=== PATIENT | male | born 1965 | race Caucasian/White ===

== ENCOUNTER 2020-08-30 07:09 | Day surgery (SDC) | payer OTHER ==
[~2020-08-30] VITALS: Ht 167.6 cm; Wt 114.1 kg
[~2020-08-30 07:09] MED LIST: B COMPLEX1 EACH PO; CRUTCH1 EACH; GLUCOPHAGE500 MG PO; LIPITOR20 MG PO; LISINOPRIL-HCT1 EACH PO; NORCO 10-325 T1 EACH PO; NORCO 5-325 TA1 EACH PO; TYLENOL EXTRA500 MG PO
--- NOTE | 2020-08-30 09:38 | NUR ---
08/30/20 0938 Kristel Fritz 0952 PATIENT ARRIVES TO PACU AWAKE BUT DROWSY. ANSWERS QUESTIONS APPROPRIATELY. DENIES PAIN OR NAUSEA. RESP EVEN AND UNLABORED, NC AT 2 LITERS.
--- NOTE | 2020-08-30 12:14 | OR ---
[facility] [address], [place] [address] Signed DATE OF OPERATION: 08/30/2020 SURGEON: Mars Torres MD PREOPERATIVE DIAGNOSES: 1. Intermittent constipation and diarrhea. 2. Intermittent rectal bleeding associated with bowel movements. POSTOPERATIVE DIAGNOSES: 1. Minimal right and left-sided diverticulosis. 2. Posterior midline anal fissure. 3. 5 mm polyp mid right colon. 4. 4 mm polyp at 25 cm. 5. Minimal to moderate internal hemorrhoids. PROCEDURE: Colonoscopy with hot biopsy. ESTIMATED BLOOD LOSS: None. INDICATIONS: Maximiliano is a 55-year-old gentleman, asked to see me for a colonoscopy. He had a colonoscopy in 2014 back in [place]. He said that was negative. Initially, we thought might be a hemorrhoid, but as I talked to more day, it sounds like he had an anal fissure and possibly some hemorrhoids as well. He told me that he does have some intermittent constipation and diarrhea and then, he will have some associated rectal bleeding with the bowel movement. He thinks there are times when he has pain around the anus. He told me there is no family history of colon cancer or polyps. In the office, I gave him a pamphlet on colonoscopy and we looked at that together along with the risks including, but not limited to gas bloating, crampy abdominal pain, bleeding, perforation requiring surgery, and missed diagnosis. We also discussed the need for IV conscious sedation. He had expressed understanding and wished to proceed. PROCEDURE NOTE: Maximiliano was taken into our endoscopy suite and placed in the left lateral decubitus position. He received a total of 5 mg of Versed 100 mcg of fentanyl to cover the case. A digital rectal exam was performed and he does have some small external hemorrhoids and an acute posterior midline anal fissure. It should heal in just fine with conservative measures. He has good sphincter tone. Prostate is moderately indurated. The left is a Electronically Signed By: MARS TORRES MD 08/30/20 1214 PATIENT NAME: MAXIMILIANO QUINTANA OPERATIVE REPORT DATE OF : 61 REPORT #: [id number] PHYSICIAN: MARS TORRES MD PCP: NIELS BILL MD REPORT IS CONFIDENTIAL AND NOT TO BE RELEASED WITHOUT AUTHORIZATION [facility] [address], [place] [address] Signed little more prominent than the right. The adult colonoscope was introduced and advanced all around into the cecum under direct visualization of the camera without difficulty. His prep was good. We could easily see the appendiceal orifice and ileocecal valve. Right next to the ileocecal valve was a diverticulum. The scope was slowly withdrawn and we found a polyp in the mid right colon, easily removed with a hot biopsy forceps. There was a similar polyp back at 25 cm also removed with a hot biopsy forceps. He also has some diverticula in the sigmoid colon. Again, there is moderate in size, few in number, and scattered about. Down in the rectum, the scope was retroflexed, he does have some minimal internal hemorrhoid tissue. After this, the gas was suctioned out and colonoscope removed. Maximiliano tolerated the procedure quite well. RECOMMENDATIONS: I will see Maximiliano back in my office in 7 to 14 days to review his results. Mars Torres MD ALB/MODL /[id number] cc: Niels Torres MD Copies: MARS TORRES MD ~ Electronically Signed By: MARS TORRES MD 08/30/20 1214 PATIENT NAME: MAXIMILIANO QUINTANA OPERATIVE REPORT DATE OF : 61 REPORT #: [id number] PHYSICIAN: MARS TORRES MD PCP: NIELS BILL MD REPORT IS CONFIDENTIAL AND NOT TO BE RELEASED WITHOUT AUTHORIZATION
--- NOTE | 2020-08-31 13:45 | PATH ---
[facility] [address], [place] [address] Signed SPECIMEN(S): A RIGHT COLON POLYP SPECIMEN(S): B SIGMOID POLYP AT 25 CM SPECIMEN SOURCE: A. RIGHT COLON POLYP B. SIGMOID POLYP AT 25 CM CLINICAL HISTORY: Intermittent rectal bleeding, constipation, diarrhea, colon polyps, diverticulosis, anal fissure, internal hemorrhoids. MICROSCOPIC DESCRIPTION: Histologic sections of all submitted blocks are examined by light microscopy. These findings, together with the gross examination, support the pathologic diagnosis. FINAL PATHOLOGIC DIAGNOSIS: A. Right colon polyp: - Tubular adenoma (one fragment). B. Sigmoid polyp at 25 cm: - Tubular adenoma (one fragment). - Hyperplastic polyp (one fragment). JVR:[facility]:C2NR GROSS DESCRIPTION: Two specimens are received in two containers, labeled "DK." A. The specimen, labeled "DK, 1," and designated on the requisition "right colon polyp," is received in formalin and consists of one dudley soft tissue fragment that measures 0.3 cm in greatest dimension. The specimen is entirely submitted in cassette (A1). B. The specimen, labeled "DK, 2," and designated on the requisition "sigmoid colon polyp at 25 cm," is received in formalin and consists of two dudley soft tissue fragments that measure 0.3 cm in greatest dimension. The specimen is entirely submitted in cassette (B1). Note: minute friable fragment AT (under the direct supervision of a pathologist) The Gross Description was prepared using a voice recognition system. The report was reviewed for accuracy; however, sound-alike word errors, addition and/or deletions may occur. If there is any question about this report, please contact Client Services. PERFORMING LABORATORY: PATIENT NAME: MAXIMILIANO QUINTANA PATHOLOGY DATE OF : 61 REPORT #: [id number] PHYSICIAN: LOUIE PATHOLOGY PCP: KACI BILL MD REPORT IS CONFIDENTIAL AND NOT TO BE RELEASED WITHOUT AUTHORIZATION [facility] [address] [place] [id number] Signed The technical component was performed by [facility], [address] [place] [address] (Demo Specialist: Claire Faust MD; CLIA# [id number]). Professional [place] [address] (Demo Specialist: Fish Mirza M.D.). Diagnostician: Fish Mirza MD Pathologist Electronically Signed 08/31/2020 Copies: ~ PATIENT NAME: MAXIMILIANO QUINTANA PATHOLOGY DATE OF : 61 REPORT #: [id number] PHYSICIAN: LOUIE PATHOLOGY PCP: KACI BILL MD REPORT IS CONFIDENTIAL AND NOT TO BE RELEASED WITHOUT AUTHORIZATION
== END 2020-08-30 10:10 | disposition home or self-care (01) ==
LOC: OPS 07:09 → DS 07:09 → OPS 08:15
PROVIDERS: ATTEND Colon & Rectal Surgery
PROC: 0DBN8ZX Excision of Sigmoid Colon, Via Natural or Artificial Opening Endoscopic, Diagnostic (ICD-10-PCS; 2020-08-30)
PROC: 0DBF8ZX Excision of Right Large Intestine, Via Natural or Artificial Opening Endoscopic, Diagnostic (ICD-10-PCS; principal; 2020-08-30 08:15)
DX: K62.5 Hemorrhage of anus and rectum (principal); D12.2 Benign neoplasm of ascending colon; D12.5 Benign neoplasm of sigmoid colon; K64.8 Other hemorrhoids; K60.0 Acute anal fissure; K64.4 Residual hemorrhoidal skin tags; K57.30 Diverticulosis of large intestine without perforation or abscess without bleeding; K59.00 Constipation, unspecified; R19.7 Diarrhea, unspecified; I10 Essential (primary) hypertension; E78.5 Hyperlipidemia, unspecified; E11.9 Type 2 diabetes mellitus without complications; Z79.899 Other long term (current) drug therapy; Z79.84 Long term (current) use of oral hypoglycemic drugs; Z88.8 Allergy status to other drugs, medicaments and biological substances
CPT/HCPCS: 99153; G0500; J2250; J3010; J7121

== ENCOUNTER 2021-12-29 08:20 | Day surgery (SDC) | payer OTHER ==
[~2021-12-29] VITALS: Ht 167.6 cm; Wt 112.7 kg
[~2021-12-29 08:20] MED LIST changes: +GLIPIZIDE10 MG PO
[2021-12-29] MEDS ORDERED: ACTOS15 MG PO (08:46)
--- NOTE | 2021-12-29 11:40 | NUR ---
12/29/21 1140 Laura Edwards 1135-PATIENT ARRIVED TO PACU ON 6L [address] RR EVEN. PATIENT AROUSES TO VERBAL STIMULI REMAINS VERY DROWSY DENIES PAIN OR NAUSEA. IVF INFUSING. SR. GLUCOSE CHECKED 107
[2021-12-29] MEDS ORDERED: COLACE100 MG PO (12:08)
[2021-12-29] MEDS ORDERED: OXYCODONE HCL10 MG PO (12:08)
--- NOTE | 2021-12-30 06:47 | OR ---
[facility] [address], [place] [address] Signed DATE OF OPERATION: SURGEON: Mars Denson MD PREOPERATIVE DIAGNOSIS: Bleeding external hemorrhoid, right posterolateral position. POSTOPERATIVE DIAGNOSES: 1. Bleeding external hemorrhoid, right posterolateral position. 2. Bleeding external hemorrhoid, right inferolateral position. PROCEDURE: Internal and external hemorrhoidectomy x2. ESTIMATED BLOOD LOSS: None. INDICATIONS: Maximiliano is a 56-year-old obese, diabetic gentleman, who is having trouble bleeding hemorrhoids. He has been using Vaseline with intermittent results. He said he alternates between constipation and diarrhea. That exacerbates the bleeding. It is now coming every week, but not necessarily every day. He said it is getting into his underwear and causing him trouble at work. 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 He had a colonoscopy in 2014, while living in [place]. I did his colonoscopy in August 2020. He had hyperplastic and adenomatous polyps along with diverticulosis. He has had some internal hemorrhoids and an acute anal fissure back in 2019. The fissure healed. At this point, he said he is feeling some bumps at the anus and he is having bleeding, particularly when he wipes. On exam in the office, we thought his main source of bleeding was the external hemorrhoid at the right posterolateral position. He has much larger hemorrhoids in the right and left lateral positions. However, these hemorrhoids are covered with thick skin and do not appear to be the source of his bleeding. Today, we also can see on exam that he had a small hemorrhoid in the right posterior, inferior position. We thought it should come out as well. In the office, I gave him our brochure on hemorrhoids. We had reviewed the medical versus surgical treatment of the hemorrhoids. He understands the hemorrhoid surgery is extremely painful. There is risk to the surgery including, but not limited to bleeding, infection, scarring, change in contour of the skin, anal stenosis as well as recurrent hemorrhoids. He had expressed understanding and wished to proceed with his surgery. DESCRIPTION OF PROCEDURE: Electronically Signed By: MARS DENSON MD 12/30/21 0647 PATIENT NAME: MAXIMILIANO QUINTANA OPERATIVE REPORT DATE OF : 61 REPORT #: [id number] PHYSICIAN: MARS DENSON MD PCP: KACI BILL MD REPORT IS CONFIDENTIAL AND NOT TO BE RELEASED WITHOUT AUTHORIZATION [facility] [address], [place] [address] Signed Maximiliano underwent a saddle block by our nurse dietary assistant in our preop area. After we answered his questions, Maximiliano was taken back into our operating room and placed in the prone demetrius-knife position with appropriate padding and monitoring. He was given monitored anesthesia care by our nurse dietary assistant. He was given preoperative antibiotics along with subcutaneous heparin after a saddle block. SCDs were utilized. He was then prepped and draped in the usual sterile fashion. A digital rectal exam was unremarkable except for the external hemorrhoids. He has good sphincter tone. The half-dailey retractor was inserted and the full circumference of the anal canal was examined. Again, he has the beefy red external hemorrhoid in the right posterolateral position. However, he also has a similar hemorrhoid in the right inferolateral position. Again, he has larger hemorrhoids in the right and left lateral positions, but the overlying skin and tissue is quite healthy and thick. We do not think that is the source of his bleeding. We therefore decided to remove the 2 hemorrhoids as described above. We had placed a 2-0 chromic suture at the apex of each hemorrhoid and then the hemorrhoid was excised with the help of the cautery with direct visualization of underlying sphincter muscles. The internal component was closed with a running locked 2-0 chromic suture. The external component was left open for drainage and to heal secondarily. After both hemorrhoids were removed, we injected local anesthetic circumferentially around the anus for a field block. The area was irrigated and suctioned out until clean. A dry peripad was placed along with underwear. Maximiliano was then rotated into the supine position and taken into recovery room in stable condition. Mars Denson MD ALB/MODL /[id number] cc: MD Jimmy Coreas Dr. Copies: MARS DENSON MD ~ Electronically Signed By: MARS DENSON MD 12/30/21 0647 PATIENT NAME: MAXIMILIANO QUINTANA OPERATIVE REPORT DATE OF : 61 REPORT #: [id number] PHYSICIAN: MARS DENSON MD PCP: KACI BILL MD REPORT IS CONFIDENTIAL AND NOT TO BE RELEASED WITHOUT AUTHORIZATION
[2021-12-30] MEDS ORDERED: FLOMAX0.4 MG PO (10:53)
== END 2021-12-29 12:30 | disposition home or self-care (01) ==
LOC: DS 08:20
PROVIDERS: ATTEND Colon & Rectal Surgery
PROC: 06BY0ZC Excision of Hemorrhoidal Plexus, Open Approach (ICD-10-PCS; principal; 2021-12-29 09:35)
DX: K64.4 Residual hemorrhoidal skin tags (principal)
CPT/HCPCS: J0690; J1644; J1885; J2001; J2250; J2704; J3010; J7121

== ENCOUNTER 2021-12-30 10:25 | Emergency (ER) | payer OTHER ==
[~2021-12-30] VITALS: Ht 167.6 cm; Wt 112.5 kg
[~2021-12-30 10:25] MED LIST changes: +ACTOS15 MG PO; +COLACE100 MG PO; +OXYCODONE HCL10 MG PO
[2021-12-30] MEDS ORDERED: FLOMAX0.4 MG PO (10:53)
== END 2021-12-30 12:35 | disposition home or self-care (01) ==
LOC: ED 10:25
DX: R33.9 Retention of urine, unspecified (principal); E11.9 Type 2 diabetes mellitus without complications; Z87.891 Personal history of nicotine dependence; Z88.8 Allergy status to other drugs, medicaments and biological substances; Z79.84 Long term (current) use of oral hypoglycemic drugs; Z79.01 Long term (current) use of anticoagulants; Z79.899 Other long term (current) drug therapy
CPT/HCPCS: 51702; 81001; 99283-25